=== PATIENT | female | born 1995 | race Caucasian/White ===

== ENCOUNTER 2019-04-01 20:32 | Emergency (ER) | payer BC ==
[2019-04-01 20:40] VITALS: BP 120/62; PULSE 104; TEMP 98.1; BMI 21.2
--- NOTE | 2019-04-01 21:34 | PDOC ---
History of Present Illness - General Chief Complaint: Laceration Stated Complaint: CUT TO RIGHT RING FINGER Time Seen by Provider: 04/01/19 20:55 History Source: Patient Exam Limitations: No Limitations Past History - Travel Traveled outside of the country in the last 30 days: No Close contact w/someone who was outside of country & ill: No - Past Medical History Asthma: No Cancer: No Cardiac Disorders: No CVA: No COPD: No - Suicide/Smoking/Psychosocial Hx Smoking History: Never smoked Review of Systems - Review of Systems Able to Perform ROS?: Yes Comments:: 04/01/19 22:21 CONSTITUTIONAL: Absent: fever, chills, diaphoresis, generalized weakness, malaise, loss of appetite MUSCULOSKELETAL: Absent: myalgia, arthralgia, joint swelling SKIN: Present: laceration to the R 4th finger Absent: rash, itching, pallor NEUROLOGIC: Absent: headache, focal weakness or paresthesias, dizziness, unsteady gait, seizure, mental status changes, bladder or bowel incontinence PSYCHIATRIC: Absent: anxiety, depression, suicidal or homicidal ideation, hallucinations. Is the patient limited Sami proficient: No *Physical Exam - Vital Signs Last Vital Signs Temp Pulse Resp BP Pulse Ox 98.1 F 104 H 120/62 100 04/01/19 20:37 04/01/19 20:37 04/01/19 20:37 04/01/19 20:37 - Physical Exam Comments: 04/01/19 22:22 GENERAL: The patient is awake, alert, and fully oriented, in no acute distress. HEAD: Normal with no signs of trauma. EYES: Pupils equal, round and reactive to light, extraocular movements intact, sclera anicteric, conjunctiva clear. EXTREMITIES: Full ROM of all fingers intact. Normal range of motion, no edema. NEUROLOGICAL: Normal speech, normal gait. PSYCH: Normal mood, normal affect. SKIN: 1 cm superficial laceration to the tip of the R 4th finger. No nail bed involvement. Warm, Dry, normal turgor, no rashes or lesions noted. Procedures - Laceration/Wound Repair Right Distal 4th digit Wound Length: to 2.5 cm Wound Explored: clean, no foreign body present Wound's Depth, Shape: superficial Irrigated w/ Saline: Yes Wound Repaired With: Dermabond Medical Decision Making - Medical Decision Making 07/13/19 22:25 Patient is a 23-year-old female no past medical history presents to the ER with a left fourth finger lag. She states she was going to reach into a bucket of ice when she did not realize there was broken glass in it. She states she cut the top of her left fourth finger and that it was bleeding a lot. Her tetanus is up to date. Denies numbness and tingling and weakness to the affected extremity A/P: Laceration on exam patient with a very superficial laceration to the right tip of the finger. No bleeding at this time. Full range of motion intact. Patient fully flex and extend the finger. PMS intact Wound was repaired with Dermabond after being flushed with high flow saline. Discharge home with symptomatic relief I discussed the physical exam findings, ancillary test results and final diagnoses with the patient. I answered all of the patient's questions. The patient was satisfied with the care received and felt comfortable with the discharge plan and treatment plan. The Patient agrees to follow up with the primary care physician/specialist within 24-72 hours. Return precautions were given. *DC/Admit/Observation/Transfer Diagnosis at time of Disposition: Laceration - Discharge Dispostion Disposition: HOME Condition at time of disposition: Stable Decision to Admit order: No - Referrals Referrals: Gopi Carcamo MD [Staff Physician] - - Patient Instructions Printed Discharge Instructions: DI for Laceration Repair With Dermabond Additional Instructions: You had your cut fixed today with dermabond The glue will fall off on its own in 3-4 days Keep the hand dry for 24 hours Avoid soaking the hand. Keep it dry when showering. Please keep the area clean and pat dry. You may take Tylenol or Motrin as needed for pain. Follow the dosing instructions on the bottle Return to the emergency department sooner if you have area of redness around the site, purulent drainage, fevers, or have any changes in your symptoms. - Post Discharge Activity Forms/Work/School Notes: Back to Work
== END 2019-04-01 21:56 | disposition home or self-care (01) ==
LOC: JERFT 20:32
PROC: 0HQFXZZ Repair Right Hand Skin, External Approach (ICD-10-PCS; principal; 2019-04-01)
DX: S61.214A Laceration without foreign body of right ring finger without damage to nail, initial encounter (principal); W25.XXXA Contact with sharp glass, initial encounter; Y93.89 Activity, other specified; Y92.038 Other place in apartment as the place of occurrence of the external cause; Y99.8 Other external cause status
CPT/HCPCS: 99281-25